=== PATIENT | female | born 1975 | race Caucasian/White ===

== ENCOUNTER 2016-04-28 20:50 | Emergency (ER) | payer MEDICAID ==
[~2016-04-28] VITALS: Ht 152.4 cm; Wt 88.0 kg
[~2016-04-28 20:50] MED LIST: ALBU8.5H3 INH; CALC-649 PO; CEPH-443 PO; FERR27TA PO; HYDR-906 PO; IBUP-1542 PO; ONDA4TAB8 PO; PRED20TA PO; PREN1TAB49 PO
[2016-04-28 20:53] VITALS: Ht 152.4 cm; Wt 88.0 kg
[2016-04-28] MEDS ORDERED: LEVALBUTEROL (NEB) 1.25 MG/0.5 ML AMP INH STA (21:23)
[2016-04-28] MEDS ORDERED: IPRATROPIUM (NEB) 0.5 MG/2.5 ML AMP NEB STA (21:23)
--- NOTE | 2016-04-28 22:36 | RADRPT ---
PROCEDURE: XR Chest. CLINICAL INDICATION: Asthma TECHNIQUE: AP Portable chest. COMPARISON: 09/30/2015 FINDINGS: The cardiomediastinal silhouette is normal. The lungs are clear. The osseous structures are unrema rkable. IMPRESSION: No acute findings. RPTAT: HIKT .Pepito Saleem MD, Date Time Electronically viewed and signed by .Pepito Saleem MD, on 04/28/2016 22:35 .T/
[2016-04-28] MEDS ORDERED: BENZ100C70 PO (23:14)
[2016-04-28] MEDS ORDERED: ALBU8.5H3 INH (23:14)
[2016-04-28 23:21] VITALS: BP 134/68; PULSE 103; RESP 18; TEMP 98.5
--- NOTE | 2016-04-29 00:07 | ERD ---
ER Documentation Chief Complaint Date/Time DATE: 04/29/16 TIME: 00:03 Chief Complaint cough x 2 days HPI 40-year-old female with a past medical history of asthma presents the ED complaining of a dry cough that started 2 days ago. States that she feels like her asthma is getting worse and feel short of breath. Denies any recent traveling. Denies any leg swelling. States that her last menses was on April 21, 2016. Denies any chest pain, abdominal pain, nausea, vomiting, fever, chills. ROS All systems reviewed and are negative except as per history of present illness. Medications Home Meds Active Scripts Albuterol Sulfate* (Proair HFA*) 8.5 Gm Hfa.aer.ad, 2 PUFF INH Q4, #1 INHALER Prov:LANCE AMAYA PA-C 04/28/16 Benzonatate* (Tessalon Perle*) 100 Mg Capsule, 100 MG PO Q8H Y for COUGH, #30 CAP Prov:LANCE AMAYA PA-C 04/28/16 Cephalexin* (Keflex*) 500 Mg Capsule, 500 MG PO QID for 7 Days, CAP Prov:NATHAN CARTY-C 10/01/15 Ondansetron Hcl* (Zofran*) 4 Mg Tablet, 4 MG PO Q6H for NAUSEA AND/OR VOMITING, #30 TAB Prov:NATHAN CARTY-C 10/01/15 Hydrocodone/Acetaminophen (Poneto 5-325 Tablet) 1 Each Tablet, 1 TAB PO Q6H Y for PAIN, #12 TAB Prov:NATHAN CARTYC 10/01/15 Ibuprofen* (Motrin*) 600 Mg Tab, 600 MG PO Q6, #30 TAB Prov:NATHAN CARTY-C 10/01/15 Prednisone* (Prednisone*) 20 Mg Tab, 40 MG PO DAILY for 4 Days, TAB Prov:LANCE AMAYA PA-C 09/01/15 Albuterol Sulfate* (Proair HFA*) 8.5 Gm Hfa.aer.ad, 2 PUFF INH Q4, #1 INHALER Prov:LANCE AMAYA PA-C 09/01/15 Ibuprofen* (Motrin*) 600 Mg Tab, 600 MG PO Q6, #30 TAB Prov:LANCE AMAYAFannie MEI 09/01/15 Reported Medications Ferrous Sulfate (Iron) 1 Tab Tablet, 1 TAB PO 04/19/12 Calcium Carbonate (Calcium) 1 Tab Tablet, PO DAILY 02/17/12 Ferrous Sulfate (Iron) 1 Tab Tablet, PO DAILY 02/17/12 Vits W-Ca,Fe,Fa(<1MG) () 1 Tab Tablet, PO DAILY 02/17/12 [None] No Conflict Check 03/13/11 [None] No Conflict Check 09/10/10 Allergies Allergies: Coded Allergies: No Known Allergy (Unverified , 02/17/12) PMhx/Soc History of Surgery: Yes (3 c sections) Anesthesia Reaction: No Hx Neurological Disorder: No Hx Respiratory Disorders: Yes (asthma) Hx Cardiac Disorders: No Hx Psychiatric Problems: No Hx Miscellaneous Medical Probl: No Hx Alcohol Use: No Hx Substance Use: No Hx Tobacco Use: No Smoking Status: Never smoker Physical Exam Vitals Vital Signs Date Time Temp Pulse Resp B/P Pulse Ox O2 Delivery O2 Flow Rate FiO2 04/28/16 23:21 98.5 103 18 134/68 98 Room Air 04/28/16 21:44 96 18 98 21 04/28/16 20:53 98.8 100 20 146/90 98 Physical Exam Const: Swz-miu-xsftpdgau, well-nourished. In no acute distress. Head: Atraumatic, normocephalic Eyes: Normal Conjunctiva without injection. No purulent discharge. PERRLA. EOMI ENT: Normal external ear. Ear canal without erythema. Tympanic membrane pearly uriostegui without effusion or bulging. Nasal canal clear with normal turbinates. Moist oropharynx without tonsillar exudates. Non-erythematous pharynx. Uvula midline. No drooling. No trismus. Neck: No cervical midline tenderness. Full range of motion. No meningismus. No cervical lymphadenopathy. No JVD. Resp: Clear to auscultation bilaterally. No wheezing, rhonchi, rales, or crackles. No accessory muscle use. No retractions. Cardio: Regular rate and rhythm. No murmurs, rubs or gallops. Abd: Soft, non tender, non distended. Normal bowel sounds. No palpable masses. No rebound tenderness. No guarding. Negative McBurney's Point. Negative John's Sign. Skin: Normal skin turgor. No petechiae or rashes Back: No midline tenderness. No CVA tenderness. Ext: No cyanosis, or edema. Distal pulses intact bilaterally. Neur: Awake and alert. Normal gait. Normal coordination. Cranial Nerves II- VII intact. Normal finger to nose. Muscle strength 5/5. Sensation intact. Psych: Normal Mood and Affect Results 24 hrs Current Medications Medications (Trade) Dose Ordered Sig/Idalia Route PRN Reason Start Time Stop Time Status Last Admin Dose Admin Ipratropium Etlan (Atrovent 0.02% (Neb)) 1 mg ONCE STAT NEB 04/28/16 21:23 04/28/16 21:26 DC 04/28/16 21:39 Levalbuterol (Xopenex Neb) 5 mg ONCE STAT INH 04/28/16 21:23 04/28/16 21:26 DC 04/28/16 21:39 Procedures/MDM 40-year-old female with a past medical history of cough that started 2 days ago. Patient is afebrile and nontoxic-appearing. Patient has normal vital signs. A breathing treatment consisting of 5 mg Xopenex, 1 mg Atrovent was ordered to further treat patient with improvement. Chest x-ray was ordered to further evaluate patient. PROCEDURE: XR Chest. CLINICAL INDICATION: Asthma TECHNIQUE: AP Portable chest. COMPARISON: 09/30/2015 FINDINGS: The cardiomediastinal silhouette is normal. The lungs are clear. The osseous structures are unremarkable. IMPRESSION: No acute findings. Patient likely has an asthma exacerbation. Low suspicion for pneumonia, pulmonary embolism, atypical pneumothorax, acute SD , cardiac tamponade, pleurisy, sinusitis, peritonsillar abscess, mastoiditis, retropharyngeal abscess, meningitis, sepsis or other emergent conditions. Patient's respiratory status has stabilized while in the department and is appropriate for outpatient work up. Exam and work up not consistent w/ impending respiratory failure or cardiovascular collapse. Pulse oximetry within normal limits - 98%. Discharge medications: Pro-air, Alejandra Johnson Follow up with primary care physician in 1-2 days. Instructed patient to return to the ED sooner for any worsening symptoms. Patient's questions were answered. Patient understood and agreed with discharge plan. Patient discharged stable. Departure Diagnosis: Primary Impression: Cough Condition: Stable Patient Instructions: Asthma, Acute (Adult) Referrals: [facility] YOU HAVE RECEIVED A MEDICAL SCREENING EXAM AND THE RESULTS INDICATE THAT YOU DO NOT HAVE A CONDITION THAT REQUIRES URGENT TREATMENT IN THE EMERGENCY DEPARTMENT. FURTHER EVALUATION AND TREATMENT OF YOUR CONDITION CAN WAIT UNTIL YOU ARE SEEN IN YOUR DOCTORS OFFICE WITHIN THE NEXT 1-2 DAYS. IT IS YOUR RESPONSIBILITY TO MAKE AN APPOINTMENT FOR FOLOW-UP CARE. IF YOU HAVE A PRIMARY DOCTOR --you should call your primary doctor and schedule an appointment IF YOU DO NOT HAVE A PRIMARY DOCTOR YOU CAN CALL OUR PHYSICIAN REFERRAL HOTLINE AT IF YOU CAN NOT AFFORD TO SEE A PHYSICIAN YOU CAN CHOSE FROM THE FOLLOWING [facility] [address] [facility]. [facility] [address] [facility] [address] [facility] [address] [address] [facility] [address] [facility]. [facility] [address] [facility]. [facility] YOU HAVE RECEIVED A MEDICAL SCREENING EXAM AND THE RESULTS INDICATE THAT YOU DO NOT HAVE A CONDITION THAT REQUIRES URGENT TREATMENT IN THE EMERGENCY DEPARTMENT. FURTHER EVALUATION AND TREATMENT OF YOUR CONDITION CAN WAIT UNTIL YOU ARE SEEN IN YOUR DOCTORS OFFICE WITHIN THE NEXT 1-2 DAYS. IT IS YOUR RESPONSIBILITY TO MAKE AN APPOINTMENT FOR FOLOW-UP CARE. IF YOU HAVE A PRIMARY DOCTOR --you should call your primary doctor and schedule and appointment IF YOU DO NOT HAVE A PRIMARY DOCTOR YOU CAN CALL OUR PHYSICIAN REFERRAL HOTLINE AT . IF YOU CAN NOT AFFORD TO SEE A PHYSICIAN YOU CAN CHOSE FROM THE FOLLOWING [facility]: [facility] [address] [place] [address] [facility] [address] [place] [address] [facility] [address] [place] [address] [facility] Additional Instructions: Call your primary care doctor for an appointment during the next 2-3 days.See the doctor sooner or return here if your condition worsens before your appointment time. LANCE AMAYA PA-C Apr 29, 2016 00:07
== END 2016-04-28 23:27 | disposition home or self-care (01) ==
LOC: FTE 20:50
DX: R05 Cough (principal); J45.901 Unspecified asthma with (acute) exacerbation
CPT/HCPCS: 71010; 94664; Z7502; Z7610